=== PATIENT | female | born 1945 | race Caucasian/White ===

== ENCOUNTER → 2017-04-09 | Outpatient (CLI) | payer MEDICARE ==
--- NOTE | 2017-04-09 11:14 | RAD ---
DATE: 04/09/2017 EXAM: DIGITAL DIAGNOSTIC BILATERAL HISTORY: Bilateral breast pain COMPARISON: 04/11/2015 This study was interpreted with the benefit of Computerized Aided Detection (CAD). The breast parenchyma shows scattered fibroglandular densities. Breast parenchyma level B. FINDINGS: No new or enlarging breast densities are seen. Minimal benign type calcifications present. No suspicious microcalcifications have developed. IMPRESSION: Stable mammograms without evidence of malignancy. BI-RADS CATEGORY: 2 BENIGN FINDING(S) RECOMMENDED FOLLOW-UP: 12M 12 MONTH FOLLOW-UP PQRS compliance statement: Patient information was entered into a reminder system with a target due date for the next mammogram. Mammography is a sensitive method for finding small breast cancers, but it does not detect them all and is not a substitute for careful clinical examination. A negative mammogram does not negate a clinically suspicious finding and should not result in delay in biopsying a clinically suspicious abnormality. "Our facility is accredited by the [employer] Mammography Program."
== END | disposition home or self-care (01) ==
LOC: MAMMO 10:36
PROVIDERS: ATTEND Obstetrics & Gynecology
DX: N64.4 Mastodynia (principal)
CPT/HCPCS: G0204; 77066

== ENCOUNTER → 2017-05-27 | Outpatient (CLI) | payer MEDICARE | END | disposition home or self-care (01) | LOC: NM 08:01 | DX: K21.9 Gastro-esophageal reflux disease without esophagitis (principal) | CPT/HCPCS: 78264; A9541 ==

== ENCOUNTER → 2019-11-25 | Outpatient (CLI) | payer MEDICARE ==
--- NOTE | 2019-11-25 17:18 | KCIC ---
CT scan of the lumbar spine without contrast 11/25/2019 CLINICAL HISTORY: Chronic low back pain worsening since July. TECHNIQUE: Unenhanced, contiguous, 0.625 mm axial sections were obtained through the lumbar spine. 3 mm reconstructed sagittal, axial and coronal images were obtained. One or more of the following individualized dose reduction techniques were utilized for this study: 1. Automated exposure control. 2. Adjustment of the mA and/or kV according to patient size. 3. Use of iterative reconstruction technique. FINDINGS: Sagittal and coronal reconstructed images demonstrate very mild S-shaped curvature of the thoracolumbar spine. Degenerative changes consisting of vertebral endplate sclerosis and minimal to mild anterior and posterior vertebral body osteophyte formation are seen throughout the lumbar disc spaces. Vacuum disc phenomenon and associated loss of height of the L4-5 and L5-S1 discs is noted. Atherosclerotic calcification of the abdominal aorta and its branches is seen. No fracture or subluxation of the lumbar vertebrae is noted. On the axial images throughout the lumbar disc spaces, the changes of degenerative disc disease are seen. These consist of mild to moderate generalized disc bulges, degenerative changes involving the facet joints and mild to moderate ligamentum flavum hypertrophy. These findings result in mild central spinal canal stenosis at L2-3, L3-4 and L4-5. Mild right neural foraminal stenosis is seen at L4-5. Mild to moderate bilateral neural foraminal stenosis is seen at L5-S1. IMPRESSION: The changes of degenerative disc disease are seen throughout the lumbar spine. These findings results in mild central spinal canal stenosis at L2-3, L3-4 and L4-5. Mild right neural foraminal stenosis is seen at L4-5. Mild to moderate bilateral neural foraminal stenosis is seen at L5-S1. No acute osseous abnormality is seen. Electronically signed by: Danny Agrawal MD (11/25/2019 5:15 PM) [id number]
== END ==
LOC: KCIC CT 12:29
PROVIDERS: ATTEND Physical Medicine & Rehabilitation
DX: M51.36 Other intervertebral disc degeneration, lumbar region (principal); M48.07 Spinal stenosis, lumbosacral region; I70.0 Atherosclerosis of aorta; M25.78 Osteophyte, vertebrae; G95.89 Other specified diseases of spinal cord
CPT/HCPCS: 72131